=== PATIENT | male | born 1970 | race Caucasian/White ===

== ENCOUNTER 2021-02-17 18:00 | Emergency (ER) | payer OTHER, SELFPAY ==
--- NOTE | 2021-02-17 18:00 | DI.RAD_ITS ---
Exam(s) XR THUMB RT EXAM: XR THUMB RT CLINICAL HISTORY: pain after table saw injury. TECHNIQUE: 2D digital imaging was performed. COMPARISON: No exams were available for comparison FINDINGS: Images taken through bandage material reveal significant soft tissue avulsion and absence of bone at the mid level of the distal phalanx of the thumb. This osseous defect measures approximately 10 x 4 millimeters and there is also an associated subtle fracture line. Fracture does not appear to involv e the interphalangeal joint. There is a small cluster of densities distal anterior to the tuft which probably represent osteophyti c fragments measuring to 0.5 millimeters. These do not exhibit metallic density are probably bone fr agments. IMPRESSION: DATA REPOSITORY: RADIATION DOSE DELIVERED:
[2021-02-17 18:06] VITALS: BP 171/104; PULSE 96; RESP 18; TEMP 36.7; O2SAT 98
--- NOTE | 2021-02-17 18:19 | ED.GENADUL_ITS ---
Discharge Plan Disposition Patient Disposition: HOME Condition: Improving Discharge Details Clinical Impression: Open fracture of distal phalanx of thumb Primary Care Provider: Unknown,Unknown ED Provider: Juan Daniel Campa Home Meds and New Rx's Prescriptions: New cephalexin 500 mg capsule 500 mg PO TID 3 Days Qty: 9 RF: 0 Discharge Instructions Additional Instructions: As discussed you will require follow-up in orthopedic clinic to which you have been referred. Please call the clinic for follow-up time, the office #[phone]. Keep elevated above the level of the heart to reduce pain and swelling. Recommend continue Tylenol and/or ibuprofen as needed for discomfort. Leave splint in place until evaluated by orthopedics. Take antibiotic as prescribed. Return to the ER for any acute concern Medical Decision Making 50-year-old male presents with right thumb avulsion injury after he was cutting insulation with a table saw. His tetanus is up-to-date. He has a defect of the distal volar pad. Sensation is absent on the distal portion of the thumb. Gross motor intact. Patient was liberally irrigated, anesthetized with a digital block, referred for x-ray. Given patient has a distal phalanx comminuted fracture, will require treatment with antibiotics. Patient dressed and splinted with thumb spica in the emergency department. Will refer to orthopedics for definitive management HPI General Mode of arrival: ambulatory . Date/Time Provider Initiated Documentation: 02/17/21 18:01 . Limitations to Documentation: no limitations . Information obtained by: patient . History of Present Illness 50 year old M presents to the emergency department with the chief complaint of Right thumb tablesaw injury, described as moderate, Quality is described as dull and constant, and is localized to the right and upper extremity. Patient reports no radiation. Patient started experiencing this minute(s) and it has been constant. No relieving factors improve symptom(s), No exacerbating factors reported . Patient notes denies weakness. Patient did receive the following treatments prior to arrival, other (Tetanus up-to-date) Related Data Home Medications Medication Instructions Recorded Confirmed cephalexin 500 mg PO TID 3 Days #9 cap 02/17/21 Previous Rx's Medication Instructions Recorded cephalexin 500 mg PO TID 3 Days #9 cap 02/17/21 Allergies Allergy/AdvReac Type Severity Reaction Status Date / Time No Known Allergies Allergy Unverified 02/17/21 18:12 General Stated Complaint: Laceration YOLA: 3 Review of Systems Narrative: Some decreased sensation. No other injury. Tetanus up-to-date. 6 systems reviewed and otherwise negative [facility] History ANKLE FX 2 SURGERIES Family History Mother Essential hypertension Heart disease COPD (chronic obstructive pulmonary disease) Asthma Father Essential hypertension Personal history of malignant neoplasm LUNG COPD (chronic obstructive pulmonary disease) Asthma Social History Smoking/Tobacco Use Status: Current every day Tobacco Type: smokeless tobacco Smoking risk assessment performed?: Yes Alcohol Intake: current Alcohol Intake frequency: 3 or more drinks per day Drug use: Never Substance use type: does not use Do you feel safe at home: Yes Do you feel safe in your relationship?: Yes Exam Narrative Exam Narrative: GEN: awake, alert, oriented 3. Pleasant, well groomed, interactive. HEAD: Normocephalic, atraumatic ENT: Mucous membranes moist, oropharynx unremarkable, External ear exam unremarkable EYES: PERRL, EOMI EXT: Full ROM, right thumb distal avulsion to radial/dorsal aspect. Sensation absent on the distal tip. Gross motor function intact. Neuro: Grossly normal neurologic exam, conversant, interactive. Psych: Speech fluent, thoughts congruent, affect normal Course Vital Signs Vital signs: Vital Signs Temperature 36.7 C 02/17/21 18:06 Pulse 96 H 02/17/21 18:06 Respiratory Rate 18 02/17/21 18:06 Blood Pressure 171/104 H 02/17/21 18:06 Pulse Oximetry 98 02/17/21 18:06 Temperature 36.7 C 02/17/21 18:06 Temperature Source Oral 02/17/21 18:06 Pulse 96 H 02/17/21 18:06 Respiratory Rate 18 02/17/21 18:06 Respiratory Effort Non-Labored 02/17/21 18:11 Blood Pressure 171/104 H 02/17/21 18:06 Blood Pressure Position Sitting 02/17/21 18:06 Pulse Oximetry 98 02/17/21 18:06 Oxygen Delivery Method Room Air 02/17/21 18:06 Oxygen Flow Rate 0 02/17/21 18:06 Pain Level 4 02/17/21 18:06
--- NOTE | 2021-02-17 18:47 | DI.VRAD_ITS ---
PROCEDURE INFORMATION: Exam: XR Right Finger(s) Exam date and time: 02/17/2021 6:03 PM Age: 50 years old Clinical indication: Other: Pain after table saw injury TECHNIQUE: Imaging protocol: XR Right fingers. Views: Minimum 2 views. COMPARISON: No relevant prior studies available. FINDINGS: Bones/joints: There is an irregular 0.9 x 0.4 cm osseous defect involving the anterior aspect of the 1st distal phalanx, likely related to the patient's saw injury. Findings suggest a nondisplaced transverse fracture through the mid aspect the distal phalanx as well as a possible nondisplaced crush type fracture of the tuft. There is no evidence for extension of fracture to the proximal articular surface. There are no subluxations. Soft tissues: There is soft tissue swelling and irregularity at the tip of the 1st digit and anterior to the distal phalanx consistent with soft tissue injury. There is a cluster of tiny densities distal anterior to the tuft of the 1st distal phalanx which may represent tiny osseous fragments but cannot exclude soft tissue foreign bodies in this region measuring up to 2 mm. IMPRESSION: 1. Acute appearing osseous injury of the 1st distal phalanx, likely related to the patient's saw injury. Findings suggest two associated nondisplaced fractures of the 1st distal phalanx. 2. Cluster of tiny densities adjacent to the tuft of the 1st distal phalanx could represent tiny osseous fragments but cannot exclude tiny soft tissue foreign bodies in this region. Recommend clinical correlation. Dictated and Authenticated by: Pietro Rodriguez MD. Ordering:SURESH Frances MD
[2021-02-17] MEDS: Cephalexin 500 MG CAP, 4 CAPS/BTL PO (19:09)
== END 2021-02-17 19:09 | disposition home or self-care (01) ==
PROVIDERS: Emergency Provider Emergency Medicine
DX: S62.521B Displaced fracture of distal phalanx of right thumb, initial encounter for open fracture (principal); W31.2XXA Contact with powered woodworking and forming machines, initial encounter
CPT/HCPCS: 29125; 99283; 73140

== ENCOUNTER 2022-03-29 00:58 | Outpatient (CLI) | payer SELFPAY ==
[2022-03-29 07:35] LABS: HCT 44.9 % (40.0-50.0); HGB 15.4 g/dL (13.5-17.5); MCH 31.7 pg (27.0-33.0); MCHC 34.3 % (32.0-36.0); MCV 92 fL (80-95); MPV 10.1 fL (8.0-11.0); Platelet Count 278 10^3/uL (130-400); RBC 4.86 10^6/uL (4.36-5.78); RDW 11.9 % (11.8-14.1); RDW-SD 41.1 fL
[2022-03-29 08:40] LABS: ALT 48 U/L (16-63); AST 19 U/L (15-37); Alkaline Phosphatase 34 U/L (46-116); Anion Gap 8.3 mmol/L (3-11); BUN 20 mg/dL (7-18); Bilirubin, Total 0.3 mg/dL (0.2-1.0); CO2 26.7 mmol/L (21.0-32.0); CREATININE 1.1 mg/dL (0.70-1.30); Calcium 9.1 mg/dL (8.5-10.1); Chloride 101 mmol/L (98-107); Glucose 126 mg/dL (74-106); Magnesium 2.2 mg/dL (1.8-2.4); Potassium 4.3 mmol/L (3.5-5.1); Sodium 136 mmol/L (136-145); TSH (W/Ref FT4) 1.03 uIU/mL (0.36-3.74); Total Protein 7.5 g/dL (6.4-8.2)
[2022-03-29 16:16] LABS: Calculated LDL 105 mg/dL (<100); Cholesterol 158 mg/dL (<200); HDL Cholesterol 42 mg/dL (40-60); Triglyceride 55 mg/dL (<150)
[2022-03-29 19:04] LABS: PSA, Screening 1.2 ng/mL (<=3.5)
[2022-03-30 10:33] LABS: HIV-1/2 Ag & Ab Screen Negative (Negative)
[2022-03-30 10:34] LABS: Hepatitis C Ab w Rflx HCV PCR Negative (Negative)
== END 2022-03-29 00:59 | disposition home or self-care (01) ==
LOC: LBO 00:58
PROVIDERS: PCP Nurse Practitioner Family; Visit Provider Family Medicine
DX: F10.10 Alcohol abuse, uncomplicated (principal); Z12.5 Encounter for screening for malignant neoplasm of prostate; Z13.6 Encounter for screening for cardiovascular disorders; Z11.59 Encounter for screening for other viral diseases; Z11.4 Encounter for screening for human immunodeficiency virus [HIV]; I10 Essential (primary) hypertension
CPT/HCPCS: 36415; 80053; 80061; 84153; 85027; 86803; 87389; 83735; 84443

== ENCOUNTER 2023-07-28 02:01 | Outpatient (CLI) | payer SELFPAY ==
[2023-07-28 16:55] LABS: CREATININE 1.2 mg/dL (0.70-1.30); Estimated GFR 73.22 (mL/min/1.73m2); Potassium 3.9 mmol/L (3.5-5.1)
== END 2023-07-28 02:02 | disposition home or self-care (01) ==
PROVIDERS: PCP Nurse Practitioner Family; Visit Provider Nurse Practitioner Family
DX: I10 Essential (primary) hypertension (principal)
CPT/HCPCS: 36415; 82565; 84132